=== PATIENT | female | born 1985 | race Caucasian/White ===

== ENCOUNTER 2021-10-26 08:09 | Emergency (ER) | payer BC, SELFPAY ==
--- NOTE | 2021-10-26 08:17 | ED.URI ---
HPI - URI/Sore Throat General Chief Complaint: Upper Respiratory Infection Stated Complaint: Throat pain/sinus drainage Time Seen by Provider: 10/26/21 08:26 Source: patient, family, RN notes reviewed and old records reviewed Mode of arrival: ambulatory Limitations: no limitations History of Present Illness HPI Narrative: 36-year-old female presents to the [facility] with a sore throat and nasal drainage, postnasal drip since yesterday. Has taken Tylenol. No other treatment prior to arrival. Denies headaches. requesting a work note MD elicited complaint: sore throat and nasal congestion Related Data Home Medications Medication Instructions Recorded Confirmed norethindrone-e.estradiol-iron 1 tablet PO DAILY 10/26/21 10/26/21 [10/05 (28)] Allergies Allergy/AdvReac Type Severity Reaction Status Date / Time milk Allergy Mild Verified 07/30/18 16:43 Review of Systems Review of Systems: All systems reviewed & are unremarkable except as noted in HPI and below Constitutional: Constitutional: Reports no additional constitutional complaints, Denies chills, Denies fever(s) and Denies headache(s) Eyes: Eyes: Reports no additional eye complaints ENT: Reports as per HPI, Denies vertigo, Denies dizziness, Denies headache(s), Reports nasal congestion and Reports sore throat Cardiovascular: Cardiovascular: Reports no additional cardiovascular complaints, Denies chest pain, Denies syncope, Denies rapid heart rate and Denies dyspnea Respiratory: Respiratory: Reports no additional respiratory complaints, Denies cough, Denies dyspnea and Denies wheezing Gastrointestinal: Gastrointestinal: Reports no additional gastrointestinal complaints, Denies abdominal pain, Denies diarrhea, Denies nausea and Denies vomiting Musculoskeletal: Musculoskeletal: Reports no additional musculoskeletal complaints and Denies numbness Integumentary/Breasts: Skin/Breast: Reports system reviewed and no additional complaints, except as docu Neurologic: Reports system reviewed and no additional complaints, except as documented, Denies vertigo, Denies dizziness, Denies syncope, Denies headache(s), Denies focal weakness and Denies numbness Psychiatric: Psychiatric: Reports no additional psychiatric complaints Allergic/Immunologic: Allergic/Immunologic: Reports no additional allergic/immunologic complaints and Denies wheezing PMFSH Past Medical History Medical History (Updated 10/26/21 @ 08:54 by Daja Auguste) Depression Gestational HTN Surgical History Surgical History H/O section Social History Social History Smoking status: Current every day smoker Alcohol intake: current Gender identity (if verbalized by the patient): Female Comments At the time of my signature, I reviewed and agree with the nursing past medical, surgical, social, and family history. There is no relevant family history pertinent to the patient complaint. Exam Const: General: cooperative, healthy appearing, no acute distress, well developed and alert Nutritional Appearance: well nourished and obese Orientation/consciousness: patient oriented x3 Limitations: no limitations HENMT: Head: normal to inspection Ears: external ears normal, TM's normal bilaterally and EAC's normal General nose exam: Normal external nose present and Normal nasal mucous membranes and turbinates present Face and sinus: normal facial exam Mouth: Yes Normal oral and palatal mucosa present, Yes lip normal and Yes tongue normal Throat: tonsils normal, uvula midline, postnasal drainage and no uvular edema Eyes: Conjunctivae: conjunctivae normal Pupils: Equal, round and reactive pupils present Neck: Neck: normal visual inspection, no lymphadenopathy and no meningeal signs Chest: Chest palpation & inspection: normal inspection of the chest Resp: Effort & Inspection: normal resp
[2021-10-26 08:26] VITALS: BP 126/80; PULSE 73; RESP 18; TEMP 37; O2SAT 100
== END 2021-10-26 08:59 | disposition home or self-care (01) ==
PROVIDERS: Emergency Provider Nurse Practitioner
DX: B34.9 Viral infection, unspecified (principal); R09.82 Postnasal drip; F17.200 Nicotine dependence, unspecified, uncomplicated
CPT/HCPCS: 87081; 87880; 99213; G0463

== ENCOUNTER 2022-11-20 10:41 | Emergency (ER) | payer BC, SELFPAY ==
[2022-11-20 10:58] VITALS: BP 139/85; PULSE 87; RESP 16; TEMP 36.9; O2SAT 97
--- NOTE | 2022-11-20 11:06 | ED.URI ---
HPI - URI/Sore Throat General Chief Complaint: Upper Respiratory Infection Stated Complaint: flu like symptoms Time Seen by Provider: 11/20/22 11:10 Source: patient Mode of arrival: ambulatory Limitations: no limitations History of Present Illness HPI Narrative: Patient is a 37-year-old female that presents with nasal congestion, runny nose, nausea, and decreased appetite since last night. States daughter has had similar symptoms. Patient is 14 weeks , with chronic nausea and vomiting. Related Data Home Medications Medication Instructions Recorded Confirmed No Home Medications 11/20/22 11/20/22 Allergies Allergy/AdvReac Type Severity Reaction Status Date / Time milk Allergy Mild Gastrointestinal Verified 11/20/22 11:13 Upset Review of Systems Review of Systems: All systems reviewed & are unremarkable except as noted in HPI and below Constitutional: Constitutional: Denies body ache(s), Denies fever(s), Denies headache(s), Denies malaise and Denies weakness Eyes: Eyes: Reports no additional eye complaints and Denies loss of vision ENT: Reports system reviewed and no additional complaints, except as documented, Denies otalgia, Denies headache(s), Reports nasal congestion, Reports nasal discharge, Denies sinus pain and Denies sore throat Cardiovascular: Cardiovascular: Reports no additional cardiovascular complaints, Denies chest pain, Denies irregular heart rhythm and Denies dyspnea Respiratory: Respiratory: Reports no additional respiratory complaints, Denies cough and Denies dyspnea Gastrointestinal: Gastrointestinal: Reports no additional gastrointestinal complaints, Denies abdominal pain, Denies melena, Denies hematochezia, Denies diarrhea, Denies nausea and Denies vomiting Musculoskeletal: Musculoskeletal: Reports no additional musculoskeletal complaints, Denies back pain, Denies myalgias and Denies arthralgias Integumentary/Breasts: Skin/Breast: Reports system reviewed and no additional complaints, except as docu, Denies pruritus and Denies rash Neurologic: Reports system reviewed and no additional complaints, except as documented, Denies headache(s), Denies loss of vision and Denies weakness Psychiatric: Psychiatric: Reports no additional psychiatric complaints [facility] Past Medical History Medical History (Updated 11/20/22 @ 11:26 by Patt [place] APRN) Depression Gestational HTN Surgical History Surgical History H/O section Social History Social History Smoking status: Current every day smoker Alcohol intake: current Gender identity (if verbalized by the patient): Female Comments At time of signature, agree with nursing past medical, surgical, social and family history. There is no relevant family history pertinent to the presenting complaint. Exam Const: General: cooperative, healthy appearing, comfortable, no acute distress and well nourished Nutritional Appearance: well nourished Orientation/consciousness: patient oriented x3 Limitations: no limitations HENMT: Head: normal to inspection, normocephalic and atraumatic Ears: external ears normal and TM's normal bilaterally Face/Nose/Sinus: Normal external nose present, normal facial exam, sinuses nontender and face symmetric Face and sinus: normal facial exam, sinuses nontender and face symmetric Mouth: Yes Normal oral and palatal mucosa present, Yes lip normal and Yes moist mucous membranes Teeth and gingiva: dentition normal Throat: posterior oropharynx normal, tonsils normal and uvula midline Eyes: General: appearance normal, both eyes and all related structures Alignment and Position: alignment normal and position normal Periorbital: periorbital findings normal Eyelids: eyelids normal Pupils: Equal, round and reactive pupils present Neck: Neck: normal visual inspection, full ROM and supple Chest:
--- NOTE | 2022-11-20 12:19 | PC.NURSE ---
1147--attempt to discharge pt and she had been talking to someone at work, and they told her she also would need a covid test. swab collected.
== END 2022-11-20 12:10 | disposition home or self-care (01) ==
PROVIDERS: Emergency Provider Nurse Practitioner Family
DX: R09.81 Nasal congestion (principal); F17.200 Nicotine dependence, unspecified, uncomplicated
CPT/HCPCS: 87081; 87426; 87804; 87880; 99213; C9803; G0463

== ENCOUNTER 2023-04-24 16:53 | Outpatient (RCR) | payer BC, SELFPAY | END 2023-06-26 11:47 | disposition home or self-care (01) | LOC: ANHOBOP 16:53 | PROVIDERS: Visit Provider Obstetrics & Gynecology | DX: O36.8190 Decreased fetal movements, unspecified trimester, not applicable or unspecified (principal); O24.419 Gestational diabetes mellitus in pregnancy, unspecified control; O16.3 Unspecified maternal hypertension, third trimester; Z3A.35 35 weeks gestation of pregnancy | CPT/HCPCS: 59025 ==

== ENCOUNTER 2023-04-30 15:33 | Observation (INO) | payer BC, SELFPAY ==
--- NOTE | ~2023-04-30 | US_ITS ---
EXAMINATION: US OB BPP wo non-stress DATE: 04/30/2023 19:42 INDICATION: Repeat BPP, decreased movement. TECHNIQUE: Real-time ultrasound of the pelvis was performed. COMPARISON: None. FINDINGS: There is a single living fetus in vertex presentation, longitudinal lie. The placenta is anterior. T he cervix was obscured. heart rate is 142 bpm. The amniotic fluid index is 21.9 cm, which is no rmal (5th to 95th percentile is 7.7 to 24.9 cm). Biophysical profile performed by the technologist: breathing (30 sec sustained breathing in 30 minutes): 2 out of 2. movement (3 gross body movements in 30 minutes: 2 out of 2. tone (one episode of kvpetil-chpwoyqhz-fdkbkhn limb movement): 2 out of 2. Amniotic fluid pocket (2 cm): 2 out of 2. Total score: 8 out of 8. IMPRESSION: Single living fetus in vertex presentation. Biophysical profile 8 out of 8. . Reviewed, dictated and finalized at location K.
[2023-04-30 16:07] VITALS: BP 128/73; PULSE 71
[2023-04-30 16:31] VITALS: BP 126/72; PULSE 81; BMI 50.5
[2023-04-30 16:31] LABS: Basophils Percent Auto 0.2 % (0.2-1.2); Eosinophils Absolute Auto 0.1 K/mm3 (0-0.3); Eosinophils Percent Auto 0.5 % (0-4.4); Hemoglobin 13.5 g/dL (12.0-15.0); Immature Granulocyte Absolute 0.04 K/mm3 (0.00-0.031); Immature Granulocyte Percent A 0.4 % (0-0.5); Lymphocytes Absolute Auto 2.41 K/mm3 (0.9-3.2); Lymphocytes Percent Auto 22.3 % (18.3-44.2); Mean Corpuscular HGB Conc 33.8 g/dl (32-36); Mean Corpuscular Hemoglobin 30.3 pg (26-34); Mean Corpuscular Volume 89.7 fl (80-100); Mean Platelet Volume 10.4 fl (7.4-10.4); Monocytes Absolute Auto 0.8 K/mm3 (0.1-0.6); Monocytes Percent Auto 7.7 % (2.6-8.5); Neutrophils Absolute Auto 7.5 K/mm3 (1.3-6.7); Neutrophils Percent Auto 68.9 % (45.5-73.1); Platelet Count Result 294 k/mm3 (150-375); Red Blood Count 4.46 M/mm3 (4.2-5.4); Red Cell Distribution Width 13.6 % (11.5-14.5); White Blood Count 10.8 K/mm3 (4.5-10.0)
--- NOTE | 2023-04-30 16:31 | OBADM ---
This patient, Felicia Johnson, admitted to the OB room OB Post 115 for observation. Patient/family oriented to hospital policies and general routines including ID bracelet, bed and alarms, visiting hours, pain management, procedures, bathroom and other care routines, personal items, smoking policy, room service/diet, and visiting hours. Patient/Family are encouraged to report perceived risks to care and to ask questions if they do not understand what they are told or what they should do.
[2023-04-30 16:42] LABS: Uric Acid 6.5 mg/dL (2.5-7.5)
[2023-04-30 16:43] LABS: Alanine Aminotransferase 61 U/L (6-35); Albumin Level 3.7 g/dL (3.5-5.1); Alkaline Phosphatase 162 U/L (38-126); Anion Gap 9 mmol/L (8-16); Aspartate Amino Transferase 36 U/L (14-36); Bilirubin,Total 0.4 mg/dL (0.2-1.3); Blood Urea Nitrogen 11 mg/dL (7-17); Calcium 9.2 mg/dL (8.4-10.2); Carbon Dioxide 17 mmol/L (22-30); Chloride 106 mmol/L (98-107); Estimated CRCL calculation 146 ml/min; Estimated Glomerular Filt Rate > 60; Glucose 115 mg/dL (65-110); Potassium 3.7 mmol/L (3.4-5.0); Sodium 132 mmol/L (137-145)
[2023-04-30 16:57] LABS: Creatinine Urine 66.1 mg/dL; Total Protein Urine Random 8 mg/dL; Ur Ttl Prot Creatinine Ratio 0.12 mg/mg (0-0.20)
[2023-04-30 17:01] VITALS: BP 122/67; PULSE 69
[2023-04-30 17:31] VITALS: BP 109/65; PULSE 73
--- NOTE | 2023-05-06 07:53 | PM.OBTRLD ---
OB - Triage/Final Diagnosis Visit Information Comments/Additional reasons for admission: I have assessed the risk for this patient, Felicia Johnson, and determined that she would benefit from observation care. Evaluation Laboratory results: Laboratory Tests 04/30/23 16:10 WBC 10.8 H RBC 4.46 Hgb 13.5 Hct 40.0 MCV 89.7 MCH 30.3 MCHC 33.8 RDW 13.6 Plt Count 294 MPV 10.4 Immature Gran % (Auto) 0.4 Neut % (Auto) 68.9 Lymph % (Auto) 22.3 [place] % (Auto) 7.7 Eos % (Auto) 0.5 Baso % (Auto) 0.2 Lymph # (Auto) 2.41 [place] # (Auto) 0.8 H Eos # (Auto) 0.1 Baso # (Auto) 0.0 Abs Immat Gran (auto) 0.04 H Absolute Neuts (auto) 7.5 H Absolute Nucleated RBC 0.0 Nucleated RBC % 0.0 Sodium 132 L Potassium 3.7 Chloride 106 Carbon Dioxide 17 L Anion Gap 9 BUN 11 Creatinine 0.60 L Estim Creat Clear Calc 146 Estimated GFR > 60 Glucose 115 H Uric Acid 6.5 Calcium 9.2 Total Bilirubin 0.4 AST 36 ALT 61 H Alkaline Phosphatase 162 H Total Protein 7.0 Albumin 3.7 U Random Total Protein 8 Urine Creatinine 66.1 Protein/Creat Ratio 2 0.12 Final Diagnosis (1) At risk for alteration in status: Code(s): Z91.89 - Other specified personal risk factors, not elsewhere classified Status: Acute
== END 2023-04-30 19:54 | disposition home or self-care (01) ==
PROVIDERS: Admitting Provider Obstetrics & Gynecology; Visit Provider Obstetrics & Gynecology
DX: O35.9XX0 Maternal care for (suspected) fetal abnormality and damage, unspecified, not applicable or unspecified (principal); Z91.89 Other specified personal risk factors, not elsewhere classified; Z3A.36 36 weeks gestation of pregnancy
CPT/HCPCS: 36415; 76819; 80053; 82570; 84156; 84550; 85025; 87081; G0378; G0379

== ENCOUNTER 2023-05-16 08:46 | Outpatient (CLI) | payer BC, SELFPAY ==
[2023-05-16 09:14] LABS: Hematocrit 40.5 % (37.0-47.0); Hemoglobin 14.1 g/dL (12.0-15.0); Mean Corpuscular HGB Conc 34.8 g/dl (32-36); Mean Corpuscular Hemoglobin 30.7 pg (26-34); Mean Platelet Volume 10.4 fl (7.4-10.4); Platelet Count Result 265 k/mm3 (150-375); Red Cell Distribution Width 13.4 % (11.5-14.5); White Blood Count 8.6 K/mm3 (4.5-10.0)
[2023-05-16 17:04] LABS: Rapid Plasma Reagin Non-Reactive (NonReactive)
== END 2023-05-16 08:47 | disposition home or self-care (01) ==
PROVIDERS: Visit Provider Obstetrics & Gynecology
DX: Z01.812 Encounter for preprocedural laboratory examination (principal)
CPT/HCPCS: 36415; 85027; 86592; 86850; 86900; 86901

== ENCOUNTER 2023-05-17 05:28 | Inpatient (IN) | payer BC, SELFPAY ==
[2023-05-17] VITALS (69 sets, daily range): BP systolic 101–158; BP diastolic 52–122; PULSE 54–191; RESP 14–20; TEMP 36.2–37; O2SAT 97–100; BMI 49.3
[2023-05-17 06:15] LABS: Glucose Point of Care 101 mg/dl (65-105)
[2023-05-17] MEDS: LACTATED RINGERS 1,000 ML 999 ML IV CONT (06:30)
--- NOTE | 2023-05-17 07:06 | P.PNAN_ITS ---
Anes - Initial Pre Proc Eval Procedure: Operation Date: 05/17/23 07:30 Proposed Procedures p Repeat Section - Hannah Rey MD Date/Time: 05/17/23 07:06 Surgeon: Hannah Rey MD Pre Op Diagnosis: C/S Patient Data Age: 37 Gender: F Height: 1.6 m Weight: 126.3 kg Last Vital Signs Pulse 66 05/17/23 07:01 BP 129/80 05/17/23 07:01 Allergies Allergy/AdvReac Type Severity Reaction Status Date / Time milk Allergy Mild Gastrointestinal Verified 11/20/22 11:13 Upset Home Medications Medication Instructions Recorded Confirmed Type 1 cap BYMOUTH DAILY 04/23/23 04/30/23 History insulin NPH isoph U-100 human 100 38 unit subcut HS 04/30/23 04/30/23 History unit/mL subcutaneous suspension (Novolin N NPH U-100 Insulin isophane) Laboratory Tests 05/17/23 06:09 POC Capillary Glucose 101 mg/dl (65-105) Patient hx anesthesia problems: none Family hx anesthesia problems: none Results Review: All pre-operative results and documents have been reviewed as part of the pre- operative evaluation. [facility] Past Medical History Medical History (Updated 05/06/23 @ 07:54 by Hannah Rey MD) Depression Gestational HTN Surgical History Surgical History H/O section Family History Family History Sibling Asthma Daughter Asthma Social History Social History Smoking status: Current every day smoker Alcohol intake: current Substance use: former Gender identity (if verbalized by the patient): Female Spiritual care concerns: No Anes - Eval Final PreProcedure Day of Procedure 05/17/23 07:06 Patient weight: morbidly obese Heart: regular rate and rhythm Lungs: clear to auscultation and normal air movement Airway: Mallampati scale class II Neurological: alert and oriented Last oral intake: >/= 8 hours ASA classification: III Emergent: no Anesthetic plan: proceed Anesthesia type and monitoring: regional spinal and standard monitoring Results Review: All pre-operative results and documents have been reviewed as part of the pre- operative evaluation. Informed Consent: The patient's anesthetic plan and its attendant risks and benefits were discussed with the patient/family/POA. Questions were solicited and answers provided to the satisfaction of the patient/family/POA.
[2023-05-17] MEDS: LACTATED RINGERS 1,000 ML 125 ML IV CONT (07:16)
--- NOTE | 2023-05-17 07:23 | PM.IMHP ---
H&P: HPI History of Present Illness Date/Time: 05/17/23 07:23 Chief Complaint: repeat CS Narrative: Felicia is a 37yo here for repeat Cs at 39.1. 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 Growth is LGA. Review of Systems Review of Systems: All systems reviewed & are unremarkable except as noted in HPI and below PMFSH Past Medical History Medical History (Updated 05/17/23 @ 07:25 by Hannah Rey MD) Depression Gestational HTN Surgical History Surgical History (Updated 05/17/23 @ 07:25 by Hannah Rey MD) H/O section Family History Family History Sibling Asthma Daughter Asthma Social History Social History Smoking status: Current every day smoker Tobacco type: e-cigarettes/vaping Second hand tobacco smoke exposure: Yes Alcohol intake: current Substance use: former Lack of Transportation: No Lack of Food: Never True Current Housing: I Have Housing Concerned About Future Housing: No Difficulty Paying Gas/Electric Bills: No Difficulty Paying for Meds: No Currently Unemployed: No Education: High School Diploma/GED Difficulty w/ Childcare or Family Care: No Gender identity (if verbalized by the patient): Female Spiritual care concerns: No Meds Home Medications and Allergies Home Medications Medication Instructions Recorded Confirmed Type 1 cap BYMOUTH DAILY 04/23/23 04/30/23 History insulin NPH isoph U-100 human 100 38 unit subcut HS 04/30/23 04/30/23 History unit/mL subcutaneous suspension (Novolin N NPH U-100 Insulin isophane) Allergies Allergy/AdvReac Type Severity Reaction Status Date / Time milk Allergy Mild Gastrointestinal Verified 11/20/22 11:13 Upset Vital Signs Vital Signs - 24 hr 05/17/23 06:15 05/17/23 06:31 05/17/23 06:46 Pulse Rate 70 71 64 Blood Pressure 139/92 H 128/81 128/82 05/17/23 07:01 Pulse Rate 66 Blood Pressure 129/80 Exam Const: General: no acute distress Resp: Effort & Inspection: normal respiratory effort Auscultation: clear to auscultation bilaterally Cardio: Rate: regular rate Rhythm: regular rhythm GI: GI Palp: Yes Soft to palpation Extrem: General: normal to inspection Assessment and Plan Assessment and plan (1) LGA (large for gestational age) fetus: Status: Acute (2) BMI 40.0-44.9, adult: Code(s): Z68.41 - Body mass index [BMI] 40.0-44.9, adult Status: Acute (3) H/O section: Code(s): Z98.891 - History of uterine scar from previous surgery Status: Acute Plan FHT category 1 consented for Repeat CS ancef will proceed
[2023-05-17] MEDS: ceFAZolin 3 GM/D5W 100 ML 100 ML IVPB (07:26)
--- NOTE | 2023-05-17 07:27 | WPDHPUPDATE1 ---
History and Physical Update Update Date/Time: 05/17/23 07:27 History and Physical has been reviewed, including an updated exam of the patient. There are NO changes in the patient's condition. Risks, benefits, and alternatives have been discussed and questions answered. Patient agrees to proceed with procedure.
[2023-05-17] MEDS: KETOROLAC 30 MG/ML VIAL (*BKC) IV PUSH (08:12)
--- NOTE | 2023-05-17 09:07 | P.OP_ITS ---
Procedure Note - Detailed Date of Procedure 05/17/23 Pre-op Diagnosis prior CS, IUP 39.1 Post-op Diagnosis Same Procedure Performed repeat section Surgeon Hannah Rey MD [employer] Technology Manager see delivery record Anesthesia Spinal Indications prior CS Description of Procedure The patient was taken to the operating room and placed in supine position with left lateral tilt. She received spinal anesthesia and was prepped and draped in normal fashion. Pryor was in place. After testing for adequate regional anesthesia, a Pfannensteil incision was made through skin and subcutaneous tissue. The fascia was incised in the midline and this was extended laterally with sr scissors. the rectus muscles were from the fascia both superiorly and inferiorly. The peritoneum was entered bluntly and this opening was extended bluntly and with metzenbaum scissors. A bladder blade was placed. A bladder flap was made and the bladder blade replaced. The low transverse uterine incision was made with a scalpel and extended bluntly. The amniotic sac was ruptured and clear fluid was noted. The head was elevated to the incision. The head delivered easily. The remainder of the was delivered easily. After delayed cord clamping, the cord was cut and the baby handed to the nurse. Baby girl at 0812, weighing 9-2, with apgars 8 and 9. The uterus was exteriorized and the placenta was extracted manually. The uterus was wiped clean to ensure no remaining membranes. The uterus was closed with two running, nonlocking suture of 3-0 vicryl. Hemostasis was noted. the uterus was returned to the pelvis and the abdomen was irrigated. The fascia was closed with running suture of 0-vicryl. The subcutaneous tissue was irrigated and made hemostatic with bovie cautery. The subcutaneous tissue was closed with 2-0 plain gut in running fashion. The skin was closed with absorbable kierra. The patient tolerated the procedure well and mother and baby were both in stable condition. Estimated Blood Loss 610 Drains No Packing No Pathology Yes Complications No immediate complications Condition Stable Disposition Floor
[2023-05-17] MEDS: OXYTOCIN 30 UNITS/NS 500 ML 30 UNITS/500 ML BAG 125 UNITS IV CONT (10:00)
[2023-05-17] MEDS: KCL 20 MEQ/D5/0.45% SOD CHL 1,000 ML 125 ML IV CONT (16:19)
[2023-05-17] MEDS: DOCUSATE SODIUM 100 MG CAPSULE PO (16:20)
[2023-05-17] MEDS: HYDROcodone/acetaminophen (*CRX) 5-325 MG TABLET 1 TAB PO (16:27)
[2023-05-17] MEDS: IBUPROFEN 600 MG TABLET PO (16:28)
--- NOTE | 2023-05-17 17:13 | OBPPTRN ---
1130-Patient transferred to post room #280 via stretcher. Support person present. Oriented to unit, room, information board, rooming in, admission packet and security measures. Patient verbalizes understanding.
[2023-05-17] MEDS: HYDROcodone/acetaminophen (*CRX) 10-325 MG TABLET 1 TAB PO (20:43)
[2023-05-18] VITALS: BP 122/70
[2023-05-18] MEDS: HYDROcodone/acetaminophen (*CRX) 10-325 MG TABLET 1 TAB PO ×5 (00:01→23:34)
[2023-05-18] MEDS: IBUPROFEN 600 MG TABLET PO ×3 (00:02→15:29)
[2023-05-18] MEDS: HYDROcodone/acetaminophen (*CRX) 5-325 MG TABLET 1 TAB PO ×2 (04:59→08:41)
--- NOTE | 2023-05-18 05:18 | PM.OBPNVD ---
OB - PN: Subj Subjective Date/time seen: 05/18/23 05:18 pp day 1 pain well managed flatus present baby doing well OB - PN: Obj Data Labs Labs: Laboratory Results - last 24 hr 05/17/23 06:09 POC Capillary Glucose 101 OB - PN A/P Plan day: 1 Plan: routine care Time Spent With Patient Time: Total time spent is greater than 50% in coordination of care (as documented) at patient's floor/unit and/or counseling patient: Review of Systems Review of Systems: All systems reviewed & are unremarkable except as noted in HPI and below Exam Const: General: cooperative, healthy appearing and comfortable Resp: Effort & Inspection: normal respiratory effort Cardio: Rate: regular rate Rhythm: regular rhythm GI: Other: Incision CDI Skin: General skin exam: normal color Neuro: General: patient oriented x3 Extrem: Right lower extremity: edema Details: non-pitting Left lower extremity: edema Details: non-pitting Psych: Appearance: grossly normal
[2023-05-18 05:31] LABS: Basophils Percent Auto 0.2 % (0.2-1.2); Eosinophils Percent Auto 0.3 % (0-4.4); Hematocrit 37.5 % (37.0-47.0); Hemoglobin 12.4 g/dL (12.0-15.0); Immature Granulocyte Absolute 0.07 K/mm3 (0.00-0.031); Immature Granulocyte Percent A 0.5 % (0-0.5); Lymphocytes Absolute Auto 1.86 K/mm3 (0.9-3.2); Lymphocytes Percent Auto 12.7 % (18.3-44.2); Mean Corpuscular HGB Conc 33.1 g/dl (32-36); Mean Corpuscular Hemoglobin 30.4 pg (26-34); Mean Corpuscular Volume 91.9 fl (80-100); Mean Platelet Volume 10.4 fl (7.4-10.4); Monocytes Absolute Auto 1.6 K/mm3 (0.1-0.6); Monocytes Percent Auto 10.8 % (2.6-8.5); Neutrophils Absolute Auto 11.1 K/mm3 (1.3-6.7); Neutrophils Percent Auto 75.5 % (45.5-73.1); Platelet Count Result 231 k/mm3 (150-375); Red Blood Count 4.08 M/mm3 (4.2-5.4); Red Cell Distribution Width 13.8 % (11.5-14.5); White Blood Count 14.7 K/mm3 (4.5-10.0)
[2023-05-18 05:43] VITALS: BP 137/91
[2023-05-18] MEDS: MULTIVIT/MIN/PREN/FOL AC/IRON TABLET 1 TAB PO (08:39)
[2023-05-18] MEDS: DOCUSATE SODIUM 100 MG CAPSULE PO ×2 (08:39→15:30)
[2023-05-18 08:40] VITALS: BP 130/82; PULSE 85; RESP 18; TEMP 36.3
[2023-05-18] MEDS: SIMETHICONE 80 MG TAB.CHEW PO ×2 (08:53→23:34)
--- NOTE | 2023-05-18 14:58 | WPDANLDPN2 ---
Anes-Prog Note L&D Date/Time: 05/18/23 14:58 Comfortable throughout: section Neuraxial method: spinal Epidural/Spinal procedure site: clean & non-tender Neuro status: Neuro function grossly intact. Cardiovascular status: normal Respiratory status: normal Airway patency: baseline Mental status: baseline Post-Op hydration status: normal Vital Signs: Last Vital Signs Temp 36.3 C L 05/18/23 08:40 Pulse 85 05/18/23 08:40 Resp 18 05/18/23 08:40 BP 130/82 05/18/23 08:40 Pulse Ox 97 05/17/23 20:00 O2 Del Method Room Air 05/17/23 11:15 Pain score (VAS): 3/10 I/O: Intake & Output 05/17/23 05/18/23 05/18/23 23:59 07:59 15:59 Intake Total 1200 500 500 Output Total 400 2100 Balance 800 -1600 500 Post-procedural complaints: none Patient feedback: Patient satisfied with anesthetic care.
--- NOTE | 2023-05-18 14:59 | WPDANLDNPN2 ---
Anes-Prog Note L&D-Neuraxial Date/Time: 05/18/23 14:59 Neuraxial medications: intrathecal PF morphine Opiod-related complaints: none Patient feedback: Patient satisfied with post-operative pain management.
[2023-05-18 20:00] VITALS: BP 137/85; PULSE 94; RESP 16; TEMP 36.9; O2SAT 98
[2023-05-19] MEDS: SIMETHICONE 80 MG TAB.CHEW PO (03:02)
[2023-05-19] MEDS: HYDROcodone/acetaminophen (*CRX) 10-325 MG TABLET 1 TAB PO ×2 (03:04→07:11)
[2023-05-19] MEDS: DOCUSATE SODIUM 100 MG CAPSULE PO (07:11)
[2023-05-19] MEDS: MULTIVIT/MIN/PREN/FOL AC/IRON TABLET 1 TAB PO (07:11)
[2023-05-19 07:46] VITALS: BP 141/90; PULSE 86; RESP 17; TEMP 36.6; O2SAT 100
--- NOTE | 2023-05-19 09:12 | PM.OBPNVD ---
OB - PN: Subj Subjective Date/time seen: 05/19/23 09:12 pp day 2 doing well flatus present no complaints would like d/c home OB - PN: Obj Data Labs 05/18/23 05:04 OB - PN A/P Plan day: 2 Plan: routine care and discharge home Time Spent With Patient Time: Total time spent is greater than 50% in coordination of care (as documented) at patient's floor/unit and/or counseling patient: Review of Systems Review of Systems: All systems reviewed & are unremarkable except as noted in HPI and below Exam Const: General: cooperative, healthy appearing and comfortable Resp: Effort & Inspection: normal respiratory effort Cardio: Rate: regular rate Rhythm: regular rhythm GI: Other: incision CDI Skin: General skin exam: normal color Neuro: General: patient oriented x3 Extrem: Right lower extremity: normal to inspection Left lower extremity: normal to inspection Psych: Appearance: grossly normal
--- NOTE | 2023-05-19 09:19 | P.DS_ITS ---
DS: Admitting Diagnosis Discharge Date 05/19/23 Admitting Diagnosis section DS: Discharge Diagnosis Discharge Diagnosis (1) delivery delivered: Code(s): O82 - Encounter for delivery without indication Status: Acute OB - DS: Summary OB Procedures : None OB Procedures Intrapartum: OB Procedures: : None Peripartum Data Procedures: Procedures Operation Date: 05/17/23 07:30 Actual Procedure Side Surgeon p Section Hannah Rey MD Time Spent with Patient Time attestation: Total time spent providing and/or coordinating discharge services: Discharge Plan Discharge Attending physician on discharge: Alvin Chamorro Discharging Clinician: Danette Alexis Patient Disposition: Home, Self-Care Activity: pelvic rest Diet: regular Patient Instructions: Antibiotic Form Stand Alone Forms: General Discharge Information Follow-up/Referrals: Hannah Rey MD [Physician] - 1 Week Discharge Medications: New hydrocodone-acetaminophen 10-325 mg tablet 1 tablet PO Q6H PRN (Reason: pain) Qty: 20 0RF ibuprofen 600 mg Tablet 600 mg PO Q6H PRN (Reason: Cramping) Qty: 30 0RF Continued capsule 1 cap BYMOUTH DAILY Discontinued Novolin N NPH U-100 Insulin 100 unit/mL Suspension 38 unit SUBCUT HS Date of admission: 05/17/23 05:28 Primary Care Provider: PHYSICIAN,MANUAL MACHINIST Admitting Provider: Hannah Rey Attending physician on admission: Hannah Rey Condition: Stable
--- NOTE | 2023-05-19 09:21 | PM.OBDSVD ---
DS: Admitting Diagnosis Discharge Date 05/19/23 Admitting Diagnosis section OB - DS: Summary OB Procedures : None OB Procedures Intrapartum: OB Procedures: : None Peripartum Data Procedures: Procedures Operation Date: 05/17/23 07:30 Actual Procedure Side Surgeon p Section Hannah Rey MD Time Spent with Patient Time attestation: Total time spent providing and/or coordinating discharge services: Discharge Plan Discharge Attending physician on discharge: Alvin Chamorro Discharging Clinician: Danette Alexis Patient Disposition: Home, Self-Care Activity: pelvic rest Diet: regular Patient Instructions: Antibiotic Form Stand Alone Forms: General Discharge Information Follow-up/Referrals: Hannah Rey MD [Physician] - 1 Week Discharge Medications: New hydrocodone-acetaminophen 10-325 mg tablet 1 tablet PO Q6H PRN (Reason: pain) Qty: 20 0RF ibuprofen 600 mg Tablet 600 mg PO Q6H PRN (Reason: Cramping) Qty: 30 0RF Continued capsule 1 cap BYMOUTH DAILY Discontinued Novolin N NPH U-100 Insulin 100 unit/mL Suspension 38 unit SUBCUT HS Date of admission: 05/17/23 05:28 Primary Care Provider: PHYSICIAN,OVERHEAD IRRIGATOR Admitting Provider: Hannah Rey Attending physician on admission: Hannah Rey Condition: Stable
== END 2023-05-19 11:13 | disposition home or self-care (01) | DRG 788 ==
LOC: ANHLDR 05:34 → ANHOB2 11:32
PROVIDERS: Admitting Provider Obstetrics & Gynecology; Visit Provider Obstetrics & Gynecology
PROC: 10D00Z1 Extraction of Products of Conception, Low, Open Approach (ICD-10-PCS; CPT 59514; principal; 2023-05-17 07:30)
DX: O34.219 Maternal care for unspecified type scar from previous cesarean delivery (principal); O24.424 Gestational diabetes mellitus in childbirth, insulin controlled; O43.113 Circumvallate placenta, third trimester; O36.63X0 Maternal care for excessive fetal growth, third trimester, not applicable or unspecified; O13.4 Gestational [pregnancy-induced] hypertension without significant proteinuria, complicating childbirth; O99.334 Smoking (tobacco) complicating childbirth; F17.290 Nicotine dependence, other tobacco product, uncomplicated; Z3A.39 39 weeks gestation of pregnancy; Z37.0 Single live birth
CPT/HCPCS: 36415; 82948; 85025; A9270; J0690; J1885; J2274; J2371; J2405; J2590; J3480; J7120

== ENCOUNTER 2023-11-06 08:51 | Emergency (ER) | payer MEDICAID, SELFPAY ==
[2023-11-06 08:59] VITALS: BP 121/73; PULSE 72; RESP 16; TEMP 36.8; O2SAT 98
--- NOTE | 2023-11-06 09:08 | ED.URI ---
HPI - URI/Sore Throat General Chief Complaint: Upper Respiratory Infection Stated Complaint: COUGH/EYE REDNESS/DRAINAGE Time Seen by Provider: 11/06/23 09:08 Source: patient Mode of arrival: ambulatory Limitations: no limitations History of Present Illness HPI Narrative: 38-year-old female presents with complaint of nasal congestion, runny nose, cough for 4 days. Afebrile. No body aches or chills. Taking [id number] medications to treat her symptoms. Reports woke up with left eye redness and crusting this morning. No vision changes. All systems reviewed and negative except as noted above. Related Data Home Medications Medication Instructions Recorded Confirmed escitalopram oxalate 10 mg tablet 10 mg PO DAILY 11/06/23 11/06/23 Allergies Allergy/AdvReac Type Severity Reaction Status Date / Time milk Allergy Mild Gastrointestinal Verified 11/06/23 09:50 Upset Review of Systems Review of Systems: CONSTITUTIONAL: Denies fever, chills, or sweats. EYES: Denies visual changes. Reports left eye redness and discharge. ENT: Reports rhinorrhea, congestion. Denies sore throat, or otalgia. CARDIOVASCULAR: Denies chest pain, palpitations, or edema. RESPIRATORY: Reports cough. Denies dyspnea. GASTROINTESTINAL: Denies abdominal pain, nausea, vomiting, or diarrhea. GENITOURINARY: Denies dysuria or hematuria. SKIN: Denies rash or itching. MUSCULOSKELETAL: Denies back pain, joint pain, or myalgia. NEUROLOGIC: Denies headache, numbness, or weakness. PSYCHIATRIC: Denies anxiety or depression. All other systems reviewed are negative, except as documented in HPI. [facility] Past Medical History Medical History (System 11/06/23 @ 09:50 by Amanda Rahman) Depression Gestational HTN Surgical History Surgical History (System 11/06/23 @ 09:50 by Amanda Rahman) H/O section Family History Family History (System 11/06/23 @ 09:50 by Amanda Rahman) Sibling Asthma Daughter Asthma Social History Social History (System 11/06/23 @ 09:50 by Amanda Rahman) Smoking status: Current every day smoker Tobacco type: e-cigarettes/vaping Second hand tobacco smoke exposure: Yes Alcohol intake: current Substance use: former Lack of Transportation: No Lack of Food: Never True Current Housing: I Have Housing Concerned About Future Housing: No Difficulty Paying Gas/Electric Bills: No Difficulty Paying for Meds: No Currently Unemployed: No Education: High School Diploma/GED Difficulty w/ Childcare or Family Care: No Gender identity (if verbalized by the patient): Female Spiritual care concerns: No Comments At time of signature, agree with nursing past medical, surgical, social and family history. There is no relevant family history pertinent to the presenting complaint. Exam Narrative: GENERAL: This is a well-nourished, well-developed patient, in no apparent distress. HEAD: normocephalic, atraumatic. EYES: PERRL. Mild erythema to sclera and conjunctiva left eye with no drainage at this time. Right eye normal. vision is grossly intact. EARS: External ears normal, auditory canals clear and without drainage, TMs normal without perforation. Hearing grossly intact. NOSE: External nose normal with clear nasal drainage, mild erythema to nares without significant swelling. THROAT: Mucous membranes moist, posterior pharynx clear. NECK: Neck supple, non-tender without lymphadenopathy, masses or thyromegaly. CARDIOVASCULAR: Regular rate and rhythm without murmurs, gallops, or rubs. RESPIRATORY: Clear to auscultation. Breath sounds equal bilaterally. No wheezes, rales, or rhonchi. SKIN: warm, Dry, intact with no suspicious lesions or rash, good texture and turgor. NEURO: awake, alert, and oriented to person, place and time. There were no obvious focal neurologic abnormalities. EXTREMITIES: No joint tenderness, effusion, or edema noted. Course Course Level of Care: Express
== END 2023-11-06 09:21 | disposition home or self-care (01) ==
PROVIDERS: Emergency Provider Nurse Practitioner Family
DX: J01.90 Acute sinusitis, unspecified (principal); H10.32 Unspecified acute conjunctivitis, left eye; F17.290 Nicotine dependence, other tobacco product, uncomplicated; F32.A Depression, unspecified
CPT/HCPCS: 99213; G0463